=== PATIENT | male | born 1980 | race Caucasian/White ===

== ENCOUNTER 2016-11-16 07:02 | Day surgery (SDC) | payer OTHER ==
[2016-10-27 16:06] VITALS: BP 130/87
[~2016-11-16] VITALS: Ht 180.3 cm; Wt 98.0 kg
[~2016-11-16 07:02] MED LIST: LEVO75TA5 PO; LISI-167 PO
[2016-11-16] MEDS ORDERED: LACTATED RINGERS 1,000 ML IV SCH (09:10)
[2016-11-16] MEDS ORDERED: FENTANYL PF 250 MCG/5ML ONE (09:29)
[2016-11-16] MEDS ORDERED: LIDOCAINE 1%, 2ML SQ PRN (09:30)
[2016-11-16] MEDS ORDERED: MIDAZOLAM 1 MG/ML, 2ML ONE (09:30)
[2016-11-16] MEDS ORDERED: ONDANSETRON 2MG/ML, 2ML ONE (10:08)
[2016-11-16] MEDS ORDERED: DEXAMETHASONE 4 MG/ML, 1ML ONE (10:08)
[2016-11-16] MEDS ORDERED: ROCURONIUM 10 MG/ML ONE (10:08)
[2016-11-16] MEDS ORDERED: GLYCOPYRROLATE 0.2MG/1ML ONE (10:08)
[2016-11-16] MEDS ORDERED: PROPOFOL 10 MG/ML, 20ML ONE (10:08)
[2016-11-16] MEDS ORDERED: NEOSTIGMINE 1 MG/ML, 10ML ONE (10:08)
[2016-11-16] MEDS ORDERED: CEFAZOLIN 1,000 MG ONE (10:08)
[2016-11-16] MEDS ORDERED: LABETALOL 5MG/ML, 20ML IV PRN (11:00)
[2016-11-16] MEDS ORDERED: ACETAMINOPHEN 325 MG TABLET PO PRN (11:00)
[2016-11-16] MEDS ORDERED: MIDAZOLAM 1 MG/ML, 2ML IV PRN (11:00)
[2016-11-16] MEDS ORDERED: HYDROmorphone 1 MG/ML, 1ML IV PRN (11:00)
[2016-11-16] MEDS ORDERED: OXYcodone 5 MG/5 ML ORAL.SOL UDC PO PRN (11:00)
[2016-11-16] MEDS ORDERED: PROMETHAZINE 25 MG/ML, 1ML IV PRN (11:00)
[2016-11-16] MEDS ORDERED: MEPERIDINE/PF 25MG/0.5ML IVPush PRN (11:00)
[2016-11-16] MEDS ORDERED: FENTANYL PF 100 MCG/2ML IV PRN (11:00)
[2016-11-16] MEDS ORDERED: ONDANSETRON 2MG/ML, 2ML IVPush PRN (11:00)
[2016-11-16] MEDS ORDERED: HYDROcodone/APAP 7.5-325MG/15ML UDC PO PRN (11:00)
[2016-11-16] MEDS ORDERED: hydrALAzine 20 MG/ML, 1ML IV PRN (11:00)
[2016-11-16] MEDS ORDERED: COCAINE TOPICAL SOLN 4%, 4ML TP ONE (11:07)
[2016-11-16] MEDS ORDERED: LIDOCAINE 1%-EPI 1:100K, 30ML INFIL ONE (11:08)
[2016-11-16] MEDS ORDERED: MUPIROCIN OINT 2%, 22GM TP ONE (11:08)
[2016-11-16] MEDS ORDERED: OXYMETAZOLINE NASAL SPRAY 0.05%, 15ML NAS ONE (11:09)
[2016-11-16] MEDS ORDERED: OXYcodone 5 MG/5 ML ORAL.SOL UDC ONE (12:40)
[2016-11-16] MEDS ORDERED: FENTANYL PF 100 MCG/2ML ONE (12:40)
[2016-11-16] MEDS ORDERED: hydrALAzine 20 MG/ML, 1ML ONE (12:40)
== END 2016-11-16 14:25 | disposition home or self-care (01) ==
LOC: OUT 07:02
PROVIDERS: ATTEND Otolaryngology Facial Plastic Surgery
DX: J34.2 Deviated nasal septum (principal); M95.0 Acquired deformity of nose
CPT/HCPCS: 30465; 30520; J0360; J0690; J1100; J2250; J2405; J2704; J2710; J3010; J3490; J7120